=== PATIENT | male | born 1980 | race Caucasian/White ===

== ENCOUNTER → 2020-08-11 | Outpatient (CLI) | payer OTHER | LOC: EMI 12:51 | DX: M47.26 Other spondylosis with radiculopathy, lumbar region (principal); M48.061 Spinal stenosis, lumbar region without neurogenic claudication; M48.07 Spinal stenosis, lumbosacral region; M25.78 Osteophyte, vertebrae; M47.817 Spondylosis without myelopathy or radiculopathy, lumbosacral region | CPT/HCPCS: 72148 ==

== ENCOUNTER → 2021-07-28 | Outpatient (CLI) | payer OTHER | LOC: EMI 13:35 | DX: M48.02 Spinal stenosis, cervical region (principal); G37.3 Acute transverse myelitis in demyelinating disease of central nervous system; M47.812 Spondylosis without myelopathy or radiculopathy, cervical region | CPT/HCPCS: 72156; A9577 ==